=== PATIENT | male | born 1985 | race Caucasian/White ===

== ENCOUNTER 2020-10-11 12:10 | Emergency (ER) | payer MEDICAID ==
[~2020-10-11] VITALS: Ht 170.2 cm; Wt 95.5 kg
[2020-10-11] MEDS ORDERED: KETOROLAC TROMETHAMINE 10 MG TABLET PO ONE (13:00)
[2020-10-11] MEDS ORDERED: NAPR-1025 PO (13:03)
[2020-10-11 14:00] VITALS: BP 154/82
== END 2020-10-11 14:21 | disposition home or self-care (01) ==
LOC: EMS 12:13
DX: M70.51 Other bursitis of knee, right knee (principal); J45.909 Unspecified asthma, uncomplicated; Z91.013 Allergy to seafood
CPT/HCPCS: 99283

== ENCOUNTER 2023-04-12 03:27 | Emergency (ER) | payer MEDICAID ==
[~2023-04-12] VITALS: Ht 172.7 cm; Wt 95.5 kg
[~2023-04-12 03:27] MED LIST: NAPR-1025 PO
[2023-04-12 03:34] VITALS: TEMP 98.7
[2023-04-12 04:26] LABS: BASOPHILS % (AUTO) 0.7 % (0.0-2.0); EOSINOPHILS % (AUTO) 5.5 % (1.0-6.0); HEMATOCRIT 41.5 % (41-53); HEMOGLOBIN 14.2 g/dL (13.5-17.5); LYMPHOCYTES # (AUTO) 2.2 K/uL (1.0-4.8); LYMPHOCYTES % (AUTO) 30.5 % (22.0-44.0); MEAN CORPUSCULAR HGB CONC 34.2 G/dL (31.0-37.0); MEAN CORPUSCULAR VOLUME 79 fL (80-100); MONOCYTES # (AUTO) 0.4 K/uL (0.1-1.0); NEUTROPHILS # (AUTO) 4.1 K/uL (1.8-7.7); NEUTROPHILS % (AUTO) 57.3 % (40.0-70.0); PLATELET COUNT (AUTO) 302 K/uL (150-450); RED BLOOD CELL COUNT(AUTO) 5.26 MIL/uL (4.50-5.90); WHITE BLOOD COUNT (AUTO) 7.1 K/uL (4.5-11.0)
[2023-04-12 04:28] LABS: ANION GAP 7 mmol/L (8-16); CARBON DIOXIDE 31 mmol/L (22-29); CHLORIDE 101 mmol/L (98-107); GLOMERULAR FILTR. RATE CALC > 60 mL/min (>60); GLUCOSE,RANDOM 111 mg/dL (70-110); POTASSIUM 3.5 mmol/L (3.5-5.1); SODIUM SERUM 139 mmol/L (136-145); UREA NITROGEN, BLOOD 15 mg/dL (7-18)
[2023-04-12 04:34] LABS: ALANINE AMINOTRANSFERASE 99 U/L (12-78); ALBUMIN 3.9 g/dL (3.4-5.0); ALKALINE PHOSPHATASE 118 U/L (46-116); ASPARTATE AMINOTRANSFERASE 39 U/L (15-37); BILIRUBIN,TOTAL 0.4 mg/dL (0.1-1.0); LIPASE 49 U/L (16-77); TOTAL PROTEIN, SERUM 7.5 g/dL (6.4-8.2)
[2023-04-12 04:36] LABS: TROPONIN I-HIGH SENSITIVITY 6 ng/L (<76)
[2023-04-12 04:38] LABS: B-TYPE NATRIURETIC PEPTIDE 15 pg/mL (0-100)
[2023-04-12] MEDS: ONDANSETRON HCL 4 MG/2 ML VIAL IVP ONE (05:06)
[2023-04-12] MEDS: KETOROLAC TROMETHAMINE 30 MG/ML VIAL IVP ONE (05:06)
[2023-04-12 07:20] VITALS: BP 136/84; PULSE 87; RESP 16
[2023-04-12] MEDS ORDERED: OMEP20 PO (07:25)
[2023-04-12 07:37] LABS: APPEARANCE,URINE CLEAR (CLEAR); BILIRUBIN,URINE NEGATIVE (NEGATIVE); COLOR,URINE COLORLESS (YELLOW); GLUCOSE, URINE (UA) NEGATIVE (NEGATIVE); KETONES,URINE NEGATIVE (NEGATIVE); LEUKOCYTE ESTERASE ,URINE NEGATIVE (NEGATIVE); NITRATE,URINE NEGATIVE (NEGATIVE); OCCULT BLOOD,URINE NEGATIVE (NEGATIVE); PROTEIN,URINE NEGATIVE (NEGATIVE); SPECIFIC GRAVITIY, URINE 1.005 (1.003-1.030); UROBILINOGEN,URINE <=1.0 mg/dL (<=1.0)
== END 2023-04-12 07:59 | disposition home or self-care (01) ==
LOC: EMS 03:28
DX: K80.50 Calculus of bile duct without cholangitis or cholecystitis without obstruction (principal); J45.909 Unspecified asthma, uncomplicated; Z91.013 Allergy to seafood
CPT/HCPCS: 99285; 96374; 76700; 71045; 96375; 80053; 83690; 83880; 84484; 85025; 36415; 93005; 81003; G0480; J1885; J2405

== ENCOUNTER 2023-05-21 02:02 | Emergency (ER) | payer MEDICAID ==
[~2023-05-21 02:02] MED LIST changes: +OMEP20 PO
== END 2023-05-21 06:36 | disposition left against medical advice (07) ==
LOC: EMS 02:03
DX: Z53.21 Procedure and treatment not carried out due to patient leaving prior to being seen by health care provider (principal)